=== PATIENT | female | born 1940 | race Two or more races ===

== ENCOUNTER → 2024-09-02 | Outpatient (CLI) | payer MEDICARE, OTHER, SELFPAY ==
[2024-09-02 09:52] LABS: Alanine Aminotransferase 24 U/L (10-49); Albumin, Serum 4.2 gm/dL (3.4-4.8); Albumin/Globulin Ratio 1.7 (1.2-2.2); Alkaline Phosphatase 64 U/L (46-116); Anion Gap 6 (7-16); Aspartate Amino Transferase 30 U/L (0-34); BUN/Creatinine Ratio 26 Ratio (12-20); Bilirubin,Total 0.6 mg/dL (0.3-1.2); Blood Urea Nitrogen 23 mg/dL (9-23); Calcium 10.1 mg/dL (8.3-10.6); Calcium (Corrected) 10.1 mg/dL (8.5-10.1); Carbon Dioxide 28.1 mMol/L (20.0-31.0); Cardiac Risk Estimate 1.9 RATIO (3.7-5.6); Chloride 105 mMol/L (98-107); Cholesterol 140 mg/dL (132-200); Creatinine (Component) 0.9 mg/dL (0.6-1.3); Globulin 2.5 gm/dL (2.3-3.5); Glucose 106 mg/dL (74-106); HDL Cholesterol 72 mg/dL (40-60); LDL Cholesterol,Calculated 53 mg/dL (0-130); Osmolality,Calculated 281 (275-295); Potassium 4.4 mMol/L (3.4-5.1); Sodium 139 mMol/L (136-145); Total Protein 6.7 gm/dL (5.7-8.2); Triglycerides 76 mg/dL (30-150); eGFR > 60 See Note
== END | disposition home or self-care (01) ==
LOC: COPL 08:15
PROVIDERS: PCP Internal Medicine; Referring Provider Internal Medicine; Visit Provider Internal Medicine
DX: I10 Essential (primary) hypertension (principal); E78.5 Hyperlipidemia, unspecified
CPT/HCPCS: 36415; 80053; 80061

== ENCOUNTER → 2024-09-30 | Outpatient (CLI) | payer MEDICARE, OTHER, SELFPAY ==
--- NOTE | 2024-09-30 09:38 | XR_ITS ---
Examination: Lumbar spine, 5 views Technique: Lumbar spine AP, lateral, coned lateral lower lumbar spine, bilateral obliques 5 views Exam date and time: September 30, 2024 1018 hours Comparison November 07, 2022 INDICATIONS: Chronic low back pain years, more severe the last 4 months FINDINGS: Severe osteopenia Lumbar levoscoliosis 10 degrees Advanced diffuse facet arthropathy Grade 1 anterolisthesis L4 on L5 L5 on S1 Advanced degenerative disc disease L5-S1 Moderately severe chronic osteoporotic compression T12 with advanced degenerative disc disease T12-L1 IMPRESSION: Severe osteopenia Stable moderately severe chronic osteoporotic compression T12 Advanced degenerative disc disease T12-L1, L5-S1
--- NOTE | 2024-09-30 09:38 | XR_ITS ---
Examination: AP lateral thoracic spine: Lateral upper dorsal spine 3 views Exam date and time: 01/08/2024 1034 hours Comparison November 07, 2022 INDICATIONS: Upper back pain 4 months. FINDINGS: Severe osteopenia Upper thoracic dextroscoliosis 8 degrees Kyphosis dorsal spine Stable moderate osteoporotic compression fracture T12 with advanced degenerative disc disease T12-L1 IMPRESSION: Severe osteopenia Stable moderate osteoporotic compression T12 Advanced degenerative disc disease T12-L1
== END | disposition home or self-care (01) ==
LOC: COPL 09:29
PROVIDERS: PCP Internal Medicine; Referring Provider Internal Medicine; Visit Provider Internal Medicine
DX: M81.8 Other osteoporosis without current pathological fracture (principal); M85.88 Other specified disorders of bone density and structure, other site; M51.35 Other intervertebral disc degeneration, thoracolumbar region
CPT/HCPCS: 72072; 72110; 83013; 83014

== ENCOUNTER → 2024-10-05 | Outpatient (CLI) | payer MEDICARE, OTHER, SELFPAY ==
--- NOTE | 2024-10-05 13:00 | XR_ITS ---
Examination: Bone densitometry Date and time of exam:October 05, 2024 1255 hours INDICATIONS: Hysterectomy age 36, personal history osteoporosis Technique: Lumbar spine and hip total bone mineralization values of an calculated. Peak reference and age match control results have been displayed. Findings: Lumbar spine total bone mineralization is0.916 gm/cm2. This is 1.2 standard deviations below peak reference. This is 1.6 standard deviations above age-matched controls. Hip total bone mineralization is 0.757 gm/cm2 This is 1.5 standard deviations below peak reference. This is 0.7 standard deviations above age-matched controls Impression: There is osteopenia based on lumbar spine measurements. There is osteoporosis based on hip measurements Lumbar mineralization is decreased 6.3% compared with July 18, 2021 Hip mineralization is decreased 7.2% compared with July 18, 2021
== END | disposition home or self-care (01) ==
PROVIDERS: PCP Internal Medicine; Referring Provider Internal Medicine; Visit Provider Internal Medicine
DX: M85.88 Other specified disorders of bone density and structure, other site (principal); M81.0 Age-related osteoporosis without current pathological fracture
CPT/HCPCS: 77080

== ENCOUNTER → 2025-01-16 | Outpatient (CLI) | payer MEDICARE, OTHER, SELFPAY ==
[2025-01-16 08:31] LABS: Basophils # (Auto) 0.1 Thou/mm3 (0.0-0.2); Basophils % (Auto) 1 % (0-2.5); Eosinophils # (Auto) 0.0 Thou/mm3 (0.0-0.5); Eosinophils % (Auto) 1 % (0-10); Hematocrit 33.0 % (36.0-46.0); Hemoglobin 11.4 g/dL (12.0-16.0); Immature Granulocytes Auto 0.03 Thou/mm3 (0.00-0.00); Lymphocytes # (Auto) 1.1 Thou/mm3 (1.0-4.8); Lymphocytes % (Auto) 18 % (10-50); Mean Corpuscular HGB Conc 34.5 g/dl (31.0-37.0); Mean Corpuscular Hemoglobin 33.3 pg (25.0-35.0); Mean Corpuscular Volume 97 fL (80-100); Monocytes # (Auto) 0.6 Thou/mm3 (0.0-0.8); Monocytes % (Auto) 10 % (0-12); Neutrophils # (Auto) 4.0 Thou/mm3 (1.8-7.7); Neutrophils % (Auto) 70 % (37-80); Nucleated Red Blood Cell # 0.00 Thou/mm3 (0.00-0.00); Nucleated Red Blood Cell % 0 /100 WBC (0); Platelet Count 249 Thou/mm3 (140-440); RDW Standard Deviation 49.4 fL (36.4-46.3); Red Blood Count 3.42 Miln/mm3 (4.00-5.20); White Blood Count 5.8 Thou/mm3 (3.6-11.0)
[2025-01-16 08:46] LABS: Alanine Aminotransferase 14 U/L (10-49); Albumin, Serum 4.2 gm/dL (3.4-4.8); Albumin/Globulin Ratio 1.7 (1.2-2.2); Alkaline Phosphatase 47 U/L (46-116); Anion Gap 10 (7-16); Aspartate Amino Transferase 22 U/L (0-34); BUN/Creatinine Ratio 26 Ratio (12-20); Bilirubin,Total 0.8 mg/dL (0.3-1.2); Blood Urea Nitrogen 23 mg/dL (9-23); Calcium 9.6 mg/dL (8.3-10.6); Calcium (Corrected) 9.6 mg/dL (8.5-10.1); Carbon Dioxide 28.3 mMol/L (20.0-31.0); Cardiac Risk Estimate 2.4 RATIO (3.7-5.6); Chloride 106 mMol/L (98-107); Cholesterol 154 mg/dL (132-200); Creatinine (Component) 0.9 mg/dL (0.6-1.3); Globulin 2.5 gm/dL (2.3-3.5); Glucose 102 mg/dL (74-106); HDL Cholesterol 65 mg/dL (40-60); LDL Cholesterol,Calculated 76 mg/dL (0-130); Osmolality,Calculated 290 (275-295); Potassium 4.0 mMol/L (3.4-5.1); Sodium 144 mMol/L (136-145); Thyroid Stimulating Hormone 3.70 uIU/mL (0.55-4.78); Total Protein 6.7 gm/dL (5.7-8.2); Triglycerides 66 mg/dL (30-150); eGFR > 60 See Note
[2025-01-16 15:26] LABS: Collection Type, Urine Clean Catch
[2025-01-16 15:57] LABS: Bilirubin,Urine Negative (Negative); Blood,Urine Negative (Negative); Budding Yeast,Urine Present; Color,Urine Yellow (Lt Yel-Yel); Glucose, Urine Negative (Negative); Ketones,Urine Negative (Negative); Leukocyte Esterase,Urine Positive (Negative); Nitrite,Urine Negative (Negative); PH,Urine 6.0 (5.0-7.0); Protein,Urine Trace (Neg - Trace); RBC,Urine 7 /hpf (0-3); Specific Gravity,Urine 1.025 (1.001-1.035); Squamous Epithelial Cell,Urine 8 /hpf (0-5); Urobilinogen,Urine 2.0 mg/dL (0.0-1.0); WBC,Urine 86 /hpf (0-5)
[2025-01-16 16:10] LABS: Clarity,Urine Hazy (Clear/Hazy)
== END | disposition home or self-care (01) ==
LOC: COPL 07:40
PROVIDERS: PCP Internal Medicine; Referring Provider Internal Medicine; Visit Provider Internal Medicine
DX: I10 Essential (primary) hypertension (principal); E78.5 Hyperlipidemia, unspecified
CPT/HCPCS: 36415; 80053; 80061; 81001; 84443; 85025

== ENCOUNTER → 2025-01-27 | Outpatient (CLI) | payer MEDICARE, OTHER, SELFPAY ==
--- NOTE | 2025-01-27 12:00 | XR_ITS ---
Examination: MRI brain without intravenous contrast. Date and time of exam: January 27, 2025 1240 hours Comparison April 25, 2019 INDICATIONS: Visual inflammatory hallucinations this month Technique: Multiple axial and sagittal images of the brain obtained. Siemens high-resolution 1.5 [place] short bore scanners utilized. Sagittal sections, T1-weighted, TR 500, TE 14, are performed. Axial sections proton-density and T2-weighted have been obtained. Inversion recovery axial images, TR 9, 260, TE 111, TI 2500. Diffusion weighted images, axial sections, TR 4800, TE 128, B value 1000 Axial sections, ADC map, TR 4800, TE 128 Findings: Enlargement of the sella turcica is not present. The optic chiasm and infundibular are not remarkable. Prepontine and interpeduncular cisterns are not enlarged. There is no localized enlargement of the medulla or rachelle. Fourth ventricle and cerebellar tonsils appear normal in position. No subacute area of hemorrhage density is seen. Mass in the cerebellopontine angle region is not evident. Globes symmetrical. Orbital musculature including medial lateral rectus muscles do not exhibit abnormality. Diffusion-weighted images demonstrate no focus of restricted diffusion. Increased white matter signal prominent Mass effect upon the ventricular system is not identified. Impression: Negative for acute hemorrhage mass effect or midline shift No acute infarct Prominent chronic microvascular white matter change
== END | disposition home or self-care (01) ==
PROVIDERS: PCP Internal Medicine; Referring Provider Internal Medicine; Visit Provider Internal Medicine
DX: R90.82 White matter disease, unspecified (principal)
CPT/HCPCS: 70551

== ENCOUNTER 2025-06-27 15:30 | Emergency (ER) | payer MEDICARE, OTHER, SELFPAY ==
[2025-06-27 15:49] VITALS: BP 153/77; PULSE 63; RESP 18; TEMP 36.8; O2SAT 98; BMI 20.6
--- NOTE | 2025-06-27 16:15 | XR_ITS ---
Examination: CT brain head without contrast. 2-D sagittal coronal reconstructions Date and time of exam: June 27, 2025, 1747 hours INDICATIONS: Ground-level fall today with injury to the head, forehead pain headache CTDI: vol (mGy): 47.8 DLP: (mGycm): 935 Technique: Multiple CT axial sections of the brain have been obtained, 5 mm slice thickness. Contrast has not been administered. 2-D sagittal, coronal reconstructions have been obtained Low dose protocols were performed. One or more of the following dose reduction techniques were used; automated exposure control, adjustment of the mA and/or KV according to patient size, use of iterative reconstruction technique. Findings: No significant ventricular enlargement. Intra-axial or extra-axial hemorrhage density is not seen. No mass effect or midline shift Basal cisterns are not remarkable. Fourth ventricle is midline. Cranial vault intact. Impression: Negative for acute hemorrhage, mass effect or midline shift
--- NOTE | 2025-06-27 16:15 | EDNOTE_ITS ---
<Statement entered by Sabine Coleman MD - 07/13/25 17:42> As co-signing physician, I was present and available for consult prn. I concur with the plan and care as documented by the midlevel provider. ED Head Injury RME/HPI General Chief complaint: Fall Stated complaint: FALL HITTING L) FOREHEAD, LAC Time Seen by Provider: 06/27/25 15:45 Source: patient, family, RN notes reviewed and old records reviewed Arrival date/time: 06/27/25 15:30 Mode of arrival: ambulatory Limitations: no limitations RME / HPI RME / HPI Narrative: 84yof presents to ED with daughter for mechanical fall and head injury today. Patient tripped over a shoe and hit her left forehead against the nightstand, obtained small laceration. Denies LOC. No vision changes, dizziness, nausea/vomiting or neck pain reported. 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 Related Data Home Medications ?Medication ?Instructions ?Recorded ?Confirmed amlodipine 5 mg tablet 5 mg PO QDAY 02/18/23 atorvastatin 10 mg tablet 10 mg PO QDAY 02/18/2302/18 losartan 50 mg tablet 50 mg PO QDAY 02/18/2302/18 tramadol 50 mg tablet 50 mg PO BID PRN Pain 02/18/23 Held on 02/19/23. Instructions: Resume on 02/24/23. Previous Rx's ?Medication ?Instructions ?Recorded docusate sodium 100 mg capsule 100 mg PO BID #40 caps 02/19/23 (Colace) hydrocodone 5 mg-acetaminophen 325 1 tab PO Q6H PRN pa in (scale score 02/19/23 mg tablet 7-10) #20 tabs ibuprofen 600 mg tablet 600 mg PO Q8H PRN pain (scal e 02/19/23 score 4-6) #15 tabs acetaminophen 325 mg tablet 650 mg (2 x 325 mg) PO Q6H PRN 06/27/25 (Tylenol) pain #30 tabs Allergies Allergy/AdvReac Type Severity Reaction Status Date / Time No Known Allergies Allergy Verified 06/27/25 15:33 Review of Systems Review of Systems Systems Reviewed: All systems reviewed, normal except as documented Constitutional Constitutional: Reports headache(s) Eyes Eyes: Denies blurry vision and Denies loss of vision ENT Ears, Nose, Mouth, and Throat: Reports headache(s), Denies neck pain and Denies vertigo Cardiovascular Cardiovascular: Denies syncope Gastrointestinal Gastrointestinal: Denies nausea and Denies vomiting Musculoskeletal Musculoskeletal: Denies neck pain Integumentary/Breasts Comments: Reports laceration Neurologic Neurologic: Reports headache(s), Denies loss of vision, Denies syncope and Denies vertigo Past Medical History Past Medical History CARDIAC: Positive Hypercholesterolemia and Hypertension GASTROINTESTINAL: Positive Gastroesophageal Reflux Disease Surgical History SURGICAL: Positive Hysterectomy and Hx Cholecystectomy Social History SMOKING STATUS: Never smoker SUBSTANCE USE: does not use ALCOHOL: Never ED Exam General Limitations: Present no limitations General appearance: Present alert and in no apparent distress Head Head exam: Present normocephalic and other (2cm laceration to left forehead. Minimal gaping, no active bleeding) Eye Eye exam: Present normal appearance, PERRL and EOMI ENT ENT exam: Present normal exam and mucous membranes moist Neck Neck exam: Present normal inspection and full ROM; Absent tenderness Chest Chest inspection: Present normal inspection and symmetric chest wall rise Respiratory Respiratory exam: Present normal lung sounds bilaterally; Absent respiratory distress Cardiovascular Cardiovascular exam: Present regular rate and normal rhythm Extremities Exam Extremities exam: Present normal inspection and full ROM Back Exam Back exam: Present normal inspection and full ROM; Absent tenderness Neurological Exam Neurological exam: Present alert, oriented X3, CN II-XII intact and normal gait; Absent motor sensory deficit Psychiatric Psychiatric exam: Present normal affect and normal mood Skin Skin exam: Present warm and dry Course Quality Measures none Orders Category Date Time Status CT head/brain wo con Stat Exams 06/27/25 16:15 Completed Acetaminophen Tab [Tylenol ES Tab] Med 06/27/25 16:15 Discontinued 1,000 mg PO X1 ONE Vital Signs Vital signs: Vital Signs Temperature 98.2 F 06/27/25 15:49 Pulse Rate 63 06/27/25 15:49 Respiratory Rate 18 06/27/25 15:49 Blood Pressure 153/77 H 06/27/25 15:49 Pulse Oximetry (%) 98 06/27/25 15:49 Oxygen Delivery Method Room Air 06/27/25 15:49 PROCEDURES: Laceration Laceration 1: Site: face (Left forehead) Size (cm): 2 Description: linear Depth: simple, single layer Pre-repair: irrigated extensively Skin layer closed with: other (Skin glue) Head Injury MDM Narrative MDM Narrative:: 84yof presents to ED with daughter for mechanical fall and head injury today. Patient tripped over a shoe and hit her left forehead against the nightstand, obtained small laceration. Denies LOC. No vision changes, dizziness, nausea/vomiting or neck pain reported. 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 CT head negative. Laceration repaired with skin glue. Patient tolerated procedure well, condition improved. Home wound care discussed. Stable for discharge, RTED precautions given. Patient data External records reviewed:: [facility] previous records (02/19/23 admit for hemant hannah) Clinical information provided by:: patient and family (daughter) Social determinants that could affect healthcare access:: none Patient has the following chronic illnesses:: HTN, GERD How is presenting disease/condition affected by chronic disease/condition?: uneffected by Evaluation data The following diagnostics were reviewed and interpreted by me:: radiology exam(s) Lab and/or radiology exams considered but not ordered:: none Interpretation Summary: CT head: no ICH per my read Medications / Prescriptions Medications or Prescriptions considered but not ordered:: No antibiotics recommended at this time Medication administrations:: Medication Administration History Discontinued Medications Acetaminophen (Acetaminophen 500 Mg Tablet) 1,000 mg PO X1 ONE Stop: 06/27/25 16:16 Last Admin: 06/27/25 16:22 Dose: 1,000 mg Documented By: OA Above medication administered in ED Consultations Consultation(s) initiated? (list below): No Diagnosis Differential diagnosis head injury: other (Closed head injury, concussion, ICH, skull fracture, subdural hematoma, laceration, abrasion) Most likely diagnosis given after review of the tests above:: Forehead laceration, head injury Admission Indicated Admission indicated?: not indicated Admission Request Was there a request for admission?: No Disposition Plan Disposition Plan: Discharge Discharge Attestation Discharge Attestation: The patient and all family members were given an opportunity to ask questions and understood the discharge instructions. Discharge instructions specifically effects, indications for sooner follow up or return to the emergency department, and the expected course of current diagnosis. Patient condition: Stable Discharge Plan Plan Patient Disposition: HOME (Self Care) Patient condition on transfer: Stable Prescriptions/Referrals Prescriptions/Med Rec: New acetaminophen [Tylenol] 325 mg tablet 650 mg PO Q6H PRN (Reason: pain) Qty: 30 0RF No Action losartan 50 mg Tablet 50 mg PO QDAY atorvastatin 10 mg Tablet 10 mg PO QDAY amlodipine 5 mg Tablet 5 mg PO QDAY tramadol 50 mg Tablet 50 mg PO BID PRN (Reason: Pain) docusate sodium [Colace] 100 mg capsule 100 mg PO BID Qty: 40 0RF ibuprofen 600 mg tablet 600 mg PO Q8H PRN (Reason: pain (scale score 4-6)) Qty: 15 0RF hydrocodone-acetaminophen 5-325 mg tablet 1 tab PO Q6H MDD 4 PRN (Reason: pain (scale score 7-10)) Qty: 20 0RF Referrals: Jolanta Thornton MD [Primary Care Provider, Nephrology] - In 1 week Problem List Clinical Impression: Head injury, Laceration of forehead Patient/Caregiver Discharge Instructions Education Materials: ED Laceration, Face: Skin Glue Print Language: Nepali Stand Alone Forms: Suyapa Award Info., Patient Portal Info Letter PA/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
[2025-06-27] MEDS: ACETAMINOPHEN 500 MG TABLET 1000 MG PO (16:22)
--- NOTE | 2025-06-27 17:19 | PC.NURSE ---
CALLED [facility] [place] TO WHEN PT WILL BE DONE. HE WILL GET HER IN ABOUT A HALF HOUR OR SO.
[2025-06-27 19:17] VITALS: BP 122/78; PULSE 88
== END 2025-06-27 19:18 | disposition home or self-care (01) ==
PROVIDERS: Emergency Provider Emergency Medicine; PCP Internal Medicine
DX: S01.81XA Laceration without foreign body of other part of head, initial encounter (principal); W01.190A Fall on same level from slipping, tripping and stumbling with subsequent striking against furniture, initial encounter
CPT/HCPCS: 12011; 70450; 99282; A9270